=== PATIENT | male | born 1990 | race Caucasian/White ===

== ENCOUNTER → 2018-07-08 | Day surgery (SDC) | payer OTHER ==
[~2018-07-08] MED LIST: LIDOCAINE 2% JELLY 5 ML TUBE ONE
== END ==
LOC: END 08:09
PROVIDERS: ATTEND Internal Medicine Gastroenterology
DX: K21.0 Gastro-esophageal reflux disease with esophagitis (principal)
CPT/HCPCS: 91010; 91034